=== PATIENT | female | born 1985 | race African-American/Black ===

== ENCOUNTER → 2017-01-17 | Outpatient (CLI) | payer MEDICAID ==
--- NOTE | 2017-01-17 12:13 | RADIOLOGY REPORT (SQ) ---
EXAM DESCRIPTION: CHEST PA/LATERAL COMPLETED DATE/TIME: 01/17/2017 11:55 am REASON FOR STUDY: OTHER CHEST PAIN COMPARISON: None. EXAM PARAMETERS: NUMBER OF VIEWS: two views TECHNIQUE: Digital Frontal and Lateral radiographic views of the chest acquired. RADIATION DOSE: NA LIMITATIONS: none FINDINGS: LUNGS AND PLEURA: No opacities, masses or pneumothorax. No pleural effusion. MEDIASTINUM AND HILAR STRUCTURES: No masses or contour abnormalities. HEART AND VASCULAR STRUCTURES: Heart normal size. No evidence for failure. BONES: No acute findings. HARDWARE: None in the chest. OTHER: No other significant finding. IMPRESSION: NO SIGNIFICANT RADIOGRAPHIC FINDING IN THE CHEST. TECHNICAL DOCUMENTATION: JOB ID: [id number] [employer]- All Rights Reserved
== END ==
LOC: OD 11:43
PROVIDERS: ATTEND Internal Medicine Cardiovascular Disease
DX: R07.89 Other chest pain (principal)
CPT/HCPCS: 71020

== ENCOUNTER → 2017-01-24 | Outpatient (CLI) | payer MEDICAID ==
[2017-01-24 09:48] LABS: HEMATOCRIT 36.6 % (36.0-47.0); HEMOGLOBIN 11.8 g/dL (12.0-15.5); HGB HCT DIFFERENCE -1.2; MEAN CORPUSCULAR HEMOGLOBIN 26.9 pg (27.0-33.4); MEAN CORPUSCULAR HGB CONC 32.3 g/dL (32.0-36.0); MEAN CORPUSCULAR VOLUME 83 fl (80-97); RED BLOOD COUNT 4.39 10^6/uL (3.72-5.28); RED CELL DISTRIBUTION WIDTH 14.5 % (11.5-14.0); WHITE BLOOD COUNT 4.8 10^3/uL (4.0-10.5)
[2017-01-24 10:06] LABS: ALANINE AMINOTRANSFERASE 31 U/L (9-52); ALBUMIN 4.1 g/dL (3.5-5.0); ALKALINE PHOSPHATASE 65 U/L (38-126); ANION GAP 10 (5-19); ASPARTATE AMINO TRANSFERASE 19 U/L (14-36); BILIRUBIN,DIRECT 0.3 mg/dL (0.0-0.4); BILIRUBIN,TOTAL 0.4 mg/dL (0.2-1.3); BLOOD UREA NITROGEN 9 mg/dL (7-20); CARBON DIOXIDE 25 mmol/L (22-30); CHLORIDE 106 mmol/L (98-107); CHOLESTEROL 214.01 mg/dL (0-200); CREATININE RESULT 0.75 mg/dL (0.52-1.25); Direct HDL 50 mg/dL (>40); GLUCOSE 97 mg/dL (75-110); MAGNESIUM 2.1 mg/dL (1.6-2.3); POTASSIUM 4.4 mmol/L (3.6-5.0); SODIUM 140.6 mmol/L (137-145); TOTAL PROTEIN 7.1 g/dL (6.3-8.2); TRIGLYCERIDES 56 mg/dL (<150)
[2017-01-24 10:27] LABS: DIRECT LDL 138 mg/dL (<100)
[2017-01-24 10:31] LABS: ERYTHROCYTE SEDIMENTATION RATE 19 mm/hr (0-20)
[2017-01-24 10:41] LABS: THYROID STIMULATING HORMONE 1.21 uIU/mL (0.47-4.68)
== END ==
LOC: OD 08:49
PROVIDERS: ATTEND Internal Medicine Cardiovascular Disease
DX: R00.2 Palpitations (principal); R07.89 Other chest pain; Z79.899 Other long term (current) drug therapy
CPT/HCPCS: 36415; 80048; 80061; 80076; 83036; 83735; 84439; 84443; 85027; 85652; 86038; 86430

== ENCOUNTER 2017-03-18 21:01 | Emergency (ER) | payer MEDICAID ==
--- NOTE | 2017-03-18 22:48 | ER Document Report ---
ED General - General Mode of Arrival: Ambulatory Information source: Patient TRAVEL OUTSIDE OF THE [place] IN LAST 30 DAYS: No - General Chief Complaint: Abdominal Pain Stated Complaint: ABDOMINAL PAIN,BACK PAIN Time Seen by Provider: 03/18/17 22:34 Notes: Patient is a 31-year-old female who presents to the emergency department today with complaints of lower abdominal pain. Patient states 5 days ago she had an allergic reaction to Monistat and was seen at an Urgent Care for this. Patient states a few hours after taking Monistat her "vagina swelled up to the size of a grapefruit". Patient states she now has lower abdominal pain. Patient denies dysuria, vomiting, or diarrhea. (SAIMA DIAS) - Related Data Allergies/Adverse Reactions: No Known Allergies Allergy (Verified 08/03/15 06:31) Past Medical History - General Information source: Patient - Social History Smoking Status: Never Smoker Cigarette use (# per day): No Frequency of alcohol use: None Drug Abuse: None Lives with: Family Family History: Reviewed & Not Pertinent Patient has suicidal ideation: No Patient has homicidal ideation: No Pulmonary Medical History: Reports: Hx Asthma - seasonal inhalers Surgical Hx: Negative - Immunizations Hx Diphtheria, Pertussis, Tetanus Vaccination: Yes - already received Review of Systems - Review of Systems Constitutional: No symptoms reported EENT: No symptoms reported Cardiovascular: No symptoms reported Respiratory: No symptoms reported Gastrointestinal: See HPI, Abdominal pain, Nausea - from pain. denies: Diarrhea , Vomiting Genitourinary: denies: Dysuria Female Genitourinary: No symptoms reported Musculoskeletal: No symptoms reported Skin: No symptoms reported Hematologic/Lymphatic: No symptoms reported Neurological/Psychological: No symptoms reported -: Yes All other systems reviewed and negative Physical Exam - Genitourinary External exam: Normal Speculum exam: Cervix closed, Vaginal discharge - yellow Vaginal bleeding: None Bimanuel exam: Cervical motion tender - mild. No: Adnexal mass, Adnexal tenderness - Vital signs Vitals: Temp Pulse Resp BP Pulse Ox 98 F 85 18 124/80 100 03/18/17 21:11 03/18/17 21:11 03/18/17 21:11 03/18/17 21:11 03/18/17 21:11 - Notes Notes: Physical Exam: General: Alert, appears well. HEENT: Normocephalic. Atraumatic. PERRL. Extraocular movements intact. Oropharynx clear. Neck: Supple. Non-tender. Respiratory: No respiratory distress. Clear and equal breath sounds bilaterally. Cardiovascular: Regular rate and rhythm. Abdominal: Normal Inspection. Non-tender. No distension. Normal Bowel Sounds. Female Genitourinary: See pelvic exam Back: Non-tender. No deformity or step off. Extremities: Moves all four extremities. Upper extremities: Normal inspection. Normal ROM. Lower extremities: Normal inspection. No edema. Normal ROM. Neurological: Normal cognition. AAOx4. Normal speech. Psychological: Normal affect. Normal Mood. Skin: Warm. Dry. Normal color. (SAIMA DIAS) Course - Re-evaluation Re-evalutation: 03/18/17 23:03 Patient presents emergency room with lower abdominal pain and back pain. She went to the urgent care on Saturday and she had used Monistat cream over-the- counter and her vagina area was very swollen and tender she said they did a pelvic examination he said there was internal swelling a lot discharge in the order cultures but she has not gotten results back so they started her on prednisone. She says she continues to have the pain like her insides are falling out. It goes around the lower abdomen into the right side she denies any burning with urination or blood in urine she is nauseated but not vomiting and has normal appetite. She reports as a teenager she has a history of gonorrhea and chlamydia. She denies any kidney stones on examination she is well-appearing nontoxic no acute abdominal guarding rebound rigidity pulsatile no mass or hernias on pelvic examination she has mild cervical motion tenderness mild yellow discharge but no right adnexal tenderness or fullness. Went ahead and treated her with Rocephin Zithromax oral pain medication and pending urinalysis and test. 03/18/17 23:41 Urinalysis is negative test is negative. Reassessment no acute abdominal guarding rebound rigidity no clinical concerns for appendicitis or torsion. Given her information for close follow-up in specific discussion of reasons for ED return sooner (WU ALLEN) - Vital Signs Vital signs: Temp Pulse Resp BP Pulse Ox 98 F 85 18 124/80 100 03/18/17 21:11 03/18/17 21:11 03/18/17 21:11 03/18/17 21:11 03/18/17 21:11 Discharge - Discharge Clinical Impression: Cervicitis Condition: Stable Disposition: HOME, SELF-CARE Additional Instructions: Cervicitis You have an inflammation of the cervix. This can be caused by germs, viruses, or allergy (for example to spermicide). Sometimes no cause is found. If there is no obvious cause, you will be tested for dangerous infections. These are herpes, gonorrhea, and chlamydia. Cultures may take a few days. If the physician is suspicious of a particular cause, you may begin treatment while waiting for cultures. Call or return if you develop abdominal pain, fever, rash, or other new symptoms. Abdominal Pain There are many causes of abdominal pain. Pain can mean a serious problem requiring surgery (such as appendicitis). It can also be an innocent problem that goes away on its own (such as a viral infection). Often, time must pass to determine the cause of pain. The physician does not feel that hospitalization is necessary, at present. Things may change within the next 24 hours. Call the doctor or come back for re- examination if any problems occur, such as: (1) Pain that becomes more severe, steady, or becomes concentrated in one specific area. Also, pain that is more severe with movement or coughing. (2) Vomiting that persists or becomes more frequent. (3) Blood in the vomitus, urine, or bowel movements. Blood in the stool may have a tarry or black appearance. (4) Shaking chills or fever greater than 100 degrees F. (5) The abdomen becomes more distended or swollen. (6) Bowel movements cease. (7) Failure to improve as expected. Prescriptions: Naproxen [Naprosyn 375 Mg Tablet] 375 mg PO DAILY #12 tablet Referrals: [facility] [Provider Group] (Call for an appointment to be seen in follow-up in 2-3 days return for increasing worsening or new symptoms) Scribe Attestation: 03/18/17 23:41 I personally performed the services described in the documentation reviewed the documentation recorded by my scribe in my presence and it accurately and completely records my words and actions (WU ALLEN) Scribe Documentation - Scribe Written by Edie:: Edie Keene, 03/18/2017 [id number] acting as scribe for :: Guerrero
[2017-03-18] MEDS ORDERED: AZITHROMYCIN 250 MG TABLET PO ONE (22:59)
[2017-03-18] MEDS ORDERED: CEFTRIAXONE INJ 250 MG VIAL IM ONE (22:59)
[2017-03-18] MEDS ORDERED: HYDROCODONE/ACETAMINOPHEN 5-325 MG TABLET PO ONE (23:00)
[2017-03-18 23:21] LABS: APPEARANCE,URINE CLEAR; BILIRUBIN,URINE NEGATIVE (NEGATIVE); GLUCOSE, URINE NEGATIVE (NEGATIVE); KETONES,URINE NEGATIVE (NEGATIVE); LEUKOCYTE ESTERASE,URINE NEGATIVE (NEGATIVE); NITRITE,URINE NEGATIVE (NEGATIVE); PROTEIN,URINE NEGATIVE (NEGATIVE); URINE SPECIFIC GRAVITY 1.005; UROBILINOGEN,URINE NEGATIVE mg/dL (<2.0)
[2017-03-19 00:34] LABS: CHLAM PCR NOT DETECTED (NOT DETECT)
[2017-03-19 01:18] VITALS: BP 94/54
== END 2017-03-19 00:25 | disposition home or self-care (01) ==
LOC: ER 21:01
DX: N72 Inflammatory disease of cervix uteri (principal); R10.9 Unspecified abdominal pain; M54.9 Dorsalgia, unspecified; R10.30 Lower abdominal pain, unspecified
CPT/HCPCS: 99284; 96372; 87210; 81025; 81001; 87491; 87591; Q0144; J0696

== ENCOUNTER → 2017-07-30 | Outpatient (CLI) | payer MEDICAID ==
[2017-07-30 14:06] LABS: CHOLESTEROL 243.65 mg/dL (0-200); Direct HDL 75 mg/dL (>40); TRIGLYCERIDES 68 mg/dL (<150)
[2017-07-30 14:17] LABS: DIRECT LDL 149 mg/dL (<100)
== END ==
LOC: OD 13:01
PROVIDERS: ATTEND Internal Medicine Cardiovascular Disease
DX: E78.00 Pure hypercholesterolemia, unspecified (principal)
CPT/HCPCS: 36415; 80061

== ENCOUNTER 2017-10-01 19:45 | Emergency (ER) | payer MEDICAID ==
[2017-10-01 20:13] VITALS: BP 116/72
--- NOTE | 2017-10-01 20:15 | ER Document Report ---
ED General - General Mode of Arrival: Ambulatory Information source: Patient TRAVEL OUTSIDE OF THE [place] IN LAST 30 DAYS: No - General Chief Complaint: Nausea/Vomiting Stated Complaint: VOMITING Notes: Patient is a 33-year-old female presenting to the emergency department complaining of nausea, vomiting, and diarrhea onset 2 days ago. Patient has been around her children who also have similar symptoms. Patient and her family recently been diagnosed with the flu 3 weeks ago. ( TANNER LOERA) - Related Data Allergies/Adverse Reactions: No Known Allergies Allergy (Verified 08/03/15 06:31) Past Medical History - General Information source: Patient - Social History Smoking Status: Never Smoker Chew tobacco use (# tins/day): No Family History: Reviewed & Not Pertinent Patient has suicidal ideation: No Patient has homicidal ideation: No Pulmonary Medical History: Reports: Hx Asthma - seasonal inhalers - Immunizations Hx Diphtheria, Pertussis, Tetanus Vaccination: Yes - already received Review of Systems - Review of Systems Constitutional: No symptoms reported EENT: No symptoms reported Cardiovascular: No symptoms reported Respiratory: No symptoms reported Gastrointestinal: See HPI, Diarrhea, Nausea, Vomiting Genitourinary: No symptoms reported Female Genitourinary: No symptoms reported Musculoskeletal: No symptoms reported Skin: No symptoms reported Hematologic/Lymphatic: No symptoms reported Neurological/Psychological: No symptoms reported -: Yes All other systems reviewed and negative Physical Exam - Vital signs Vitals: Temp Pulse Resp BP Pulse Ox 99.3 F 96 19 116/72 97 10/01/17 20:05 10/01/17 20:05 10/01/17 20:05 10/01/17 20:05 10/01/17 20:05 - Notes Notes: GENERAL: Alert, interacts well, well appearing. No acute distress. HEAD: Normocephalic, atraumatic. EYES: Pupils equal, round, and reactive to light. Extraocular movements intact. ENT: Oral mucosa dry, tongue midline. NECK: Full range of motion. Supple. Trachea midline. LUNGS: Clear to auscultation bilaterally, no wheezes, rales, or rhonchi. No respiratory distress. HEART: Tachycardic. No murmurs, gallops, or rubs. ABDOMEN: Soft, non-tender. Non-distended. Bowel sounds present in all 4 quadrants. EXTREMITIES: Moves all 4 extremities spontaneously. NEUROLOGICAL: Alert and oriented x3. Normal speech. PSYCH: Normal affect, normal mood. SKIN: Warm, dry, normal turgor. No rashes or lesions noted. (TANNER LOERA) - Vital Signs Vital signs: Temp Pulse Resp BP Pulse Ox 99.3 F 96 19 116/72 97 10/01/17 20:05 10/01/17 20:05 10/01/17 20:05 10/01/17 20:05 10/01/17 20:05 Discharge - Discharge Clinical Impression: Nausea Vomiting Qualifiers: Vomiting type: unspecified Vomiting Intractability: unspecified Nausea presence : with nausea Qualified Code(s): R11.2 - Nausea with vomiting, unspecified Diarrhea Qualifiers: Diarrhea type: unspecified type Qualified Code(s): R19.7 - Diarrhea, unspecified Condition: Stable Disposition: HOME, SELF-CARE Additional Instructions: Please drink Pedialyte for fluid and hydration. Return to the emergency department if you have any other worsening symptoms. Prescriptions: Ondansetron HCl [Zofran 4 mg Tablet] 1 tab PO Q4H PRN #15 tablet PRN Reason: Forms: Parent Work Note, Return to Work Referrals: YOJANA CABAN DO [Primary Care Provider] - Follow up as needed Scribe Attestation: 10/03/17 03:43 I personally performed the services described documentation, reviewed and edited the documentation which was dictated to describe my presence, and it accurately records my words and actions. (STEFANIA MOON) Scribe Documentation - Scribe Written by Scribe:: Edie Osuna, 10/01/2017 20:19 acting as scribe for :: Estevan
[2017-10-01] MEDS ORDERED: ONDANSETRON ODT 4 MG TAB (6 TAB/ER DISP) PO PRN (20:22)
== END 2017-10-01 20:40 | disposition home or self-care (01) ==
LOC: ER 19:45
DX: R11.2 Nausea with vomiting, unspecified (principal); R19.7 Diarrhea, unspecified
CPT/HCPCS: 99283

== ENCOUNTER 2017-11-12 09:00 | Emergency (ER) | payer BC, MEDICAID ==
[2017-11-12 09:47] LABS: ABSOLUTE BASOPHILS # (AUTO) 0.1 10^3/uL (0.0-0.2); ABSOLUTE LYMPHOCYTES (AUTO) 1.9 10^3/uL (0.5-4.7); ABSOLUTE MONOCYTES (AUTO) 0.4 10^3/uL (0.1-1.4); ABSOLUTE NEUT (AUTO) 2.9 10^3/uL (1.7-8.2); BASOPHILS % (AUTO) 1.3 % (0-2); EOSINOPHILS % (AUTO) 0.5 % (0-6); HEMATOCRIT 37.2 % (36.0-47.0); HEMOGLOBIN 11.9 g/dL (12.0-15.5); LYMPHOCYTES % (AUTO) 35.9 % (13-45); MEAN CORPUSCULAR HEMOGLOBIN 25.3 pg (27.0-33.4); MEAN CORPUSCULAR HGB CONC 32.1 g/dL (32.0-36.0); MEAN CORPUSCULAR VOLUME 79 fl (80-97); PLATELET COUNT 299 10^3/uL (150-450); RED BLOOD COUNT 4.71 10^6/uL (3.72-5.28); SEGMENTED NEUTROPHILS % (AUTO) 54.3 % (42-78); TOTAL CELLS COUNTED % (AUTO) 100 %; WHITE BLOOD COUNT 5.4 10^3/uL (4.0-10.5)
--- NOTE | 2017-11-12 10:02 | ER Document Report ---
ED General - General Chief Complaint: Overdose Stated Complaint: VOMITING Time Seen by Provider: 11/12/17 09:07 Mode of Arrival: Ambulatory Information source: Patient Notes: 32 yr old female presents with complaints of ingestion of pills last night with alcohol. Pt notes that she "was tired" called her to come get the children. pt is a chronic alcoholic. she denies si to me, but noted by ems to have such concerns. TRAVEL OUTSIDE OF THE [place] IN LAST 30 DAYS: No - HPI Onset: Yesterday Onset/Duration: Sudden Quality of pain: No pain Severity: Mild Pain Level: Denies Associated symptoms: Other Exacerbated by: Denies Relieved by: Denies Similar symptoms previously: Yes Recently seen / treated by doctor: Yes - Related Data Allergies/Adverse Reactions: No Known Allergies Allergy (Verified 08/03/15 06:31) Past Medical History - Social History Smoking Status: Never Smoker Cigarette use (# per day): No Chew tobacco use (# tins/day): No Smoking Education Provided: No Frequency of alcohol use: Heavy Family History: Reviewed & Not Pertinent - Past Medical History Cardiac Medical History: Denies: Hx Coronary Artery Disease, Hx Heart Attack, Hx Hypertension Pulmonary Medical History: Reports: Hx Asthma - seasonal inhalers Denies: Hx Bronchitis, Hx COPD, Hx Pneumonia Neurological Medical History: Denies: Hx Cerebrovascular Accident, Hx Seizures Renal/ Medical History: Denies: Hx Peritoneal Dialysis Musculoskeltal Medical History: Denies Hx Arthritis - Immunizations Hx Diphtheria, Pertussis, Tetanus Vaccination: Yes - already received Review of Systems - Review of Systems Notes: REVIEW OF SYSTEMS: CONSTITUTIONAL : Denies fever, chills, or sweats. Denies recent illness. EENT: Denies eye, ear, throat, or mouth pain or symptoms. Denies nasal or sinus congestion or discharge. Denies throat, tongue, or mouth swelling or difficulty swallowing. CARDIOVASCULAR: Denies chest pain. Denies palpitations or racing or irregular heart beat. Denies ankle edema. RESPIRATORY: Denies cough, cold, or chest congestion. Denies shortness of breath, difficulty breathing, or wheezing. GASTROINTESTINAL: Denies abdominal pain or distention. Denies nausea, vomiting , or diarrhea. Denies blood in vomitus, stools, or per rectum. Denies black, tarry stools. Denies constipation. GENITOURINARY: Denies difficulty urinating, painful urination, burning, frequency, blood in urine, or discharge. FEMALE GENITOURINARY: Denies vaginal bleeding, heavy or abnormal periods, irregular periods. Denies vaginal discharge or odor. MUSCULOSKELETAL: Denies back or neck pain or stiffness. Denies joint pain or swelling. SKIN: Denies rash, lesions or sores. HEMATOLOGIC : Denies easy bruising or bleeding. LYMPHATIC: Denies swollen, enlarged glands. NEUROLOGICAL: Denies confusion or altered mental status. Denies passing out or loss of consciousness. Denies dizziness or lightheadedness. Denies headache. Denies weakness or paralysis or loss of use of either side. Denies problems with gait or speech. Denies sensory loss, numbness, or tingling. Denies seizures. PSYCHIATRIC: Denies any suicidal ideations to myself ALL OTHER SYSTEMS REVIEWED AND NEGATIVE. PHYSICAL EXAMINATION: GENERAL: Well-appearing, well-nourished and in no acute distress. HEAD: Atraumatic, normocephalic. EYES: Pupils equal round and reactive to light, extraocular movements intact, conjunctiva are glazed ENT: Nares patent, oropharynx clear without exudates. Moist mucous membranes. NECK: Normal range of motion, supple without lymphadenopathy LUNGS: Breath sounds clear to auscultation bilaterally and equal. No wheezes rales or rhonchi. HEART: Regular rate and rhythm without murmurs ABDOMEN: Soft, nontender, nondistended abdomen. No guarding, no rebound. No masses appreciated. Female : deferred Musculoskeletal: Normal range of motion, no pitting or edema. No cyanosis. NEUROLOGICAL: Cranial nerves grossly intact. Normal speech, normal gait. Normal sensory, motor exams PSYCH: Flat affect does not make eye contact SKIN: Warm, Dry, normal turgor, no rashes or lesions noted. Dictation was performed using [employer] voice recognition software Physical Exam - Vital signs Vitals: Resp Pulse Ox 11 L 97 11/12/17 09:12 11/12/17 09:12 Course - Re-evaluation Re-evalutation: 11/12/17 10:02 I will have mental health evaluate the patient, I have very low suspicion for actual overdoses symptoms occurred greater than 12 hours ago 11/12/17 13:22 It appears cocaine was found at the house, patient continuously changes her story as to what medications she is taking otherwise, she will be watched and involuntarily held until she is sober - Vital Signs Vital signs: Temp Pulse Resp BP Pulse Ox 98.2 F 17 124/90 H 98 11/12/17 09:22 11/12/17 12:00 11/12/17 11:00 11/12/17 12:00 - Laboratory Result Diagrams: 11/12/17 09:22 11/12/17 09:22 Laboratory results interpreted by me: 11/12/17 11/12/17 09:22 09:22 Hgb 11.9 L MCV 79 L MCH 25.3 L RDW 17.0 H BUN 6 L Total Bilirubin 0.1 L Salicylates < 1.0 L Acetaminophen < 10 L - EKG Interpretation by Me EKG shows normal: Moore, Intervals, QRS Complexes, ST-T Waves Discharge - Discharge Clinical Impression: Suicidal ideation Condition: Stable Disposition: PSYCH HOSP/UNIT
[2017-11-12 10:05] LABS: ALANINE AMINOTRANSFERASE 45 U/L (9-52); ALBUMIN 4.1 g/dL (3.5-5.0); ALCOHOL 32 mg/dL (NONE DETECTED); ALKALINE PHOSPHATASE 59 U/L (38-126); ANION GAP 11 (5-19); ASPARTATE AMINO TRANSFERASE 30 U/L (14-36); BILIRUBIN,DIRECT 0.1 mg/dL (0.0-0.4); BILIRUBIN,TOTAL 0.1 mg/dL (0.2-1.3); BLOOD UREA NITROGEN 6 mg/dL (7-20); CALCIUM 9.4 mg/dL (8.4-10.2); CARBON DIOXIDE 27 mmol/L (22-30); CHLORIDE 104 mmol/L (98-107); GLUCOSE 110 mg/dL (75-110); SODIUM 142.3 mmol/L (137-145); TOTAL PROTEIN 6.8 g/dL (6.3-8.2)
[2017-11-12 10:06] LABS: ACETAMINOPHEN < 10 ug/mL (10-30); SALICYLATE < 1.0 mg/dL (2.0-20.0)
--- NOTE | 2017-11-12 10:44 | EKG REPORT ---
SEVERITY:- NORMAL ECG - SINUS RHYTHM : Confirmed by: Tati Gomez 12-Nov-2017 10:44:22
--- NOTE | 2017-11-12 12:17 | PSYCHOLOGICAL NOTE ---
Psych Note - Psych Note Psych Note: Reason for consult: Intentional overdose/suicidal ideation Eval: 11:30 am Final Disposition 12:00 pm Patient is a 32-year-old female. Patient reports she was "chasing a feeling" by taking Xanax, snorting cocaine, and drinking beer. Patient reports she met a senthil recently and started doing cocaine. Patient reports she has a history of depression and anxiety and was treated at [facility] 2 years ago stating that it was not helpful. Patient reports she had depression 2 years ago which led to her self-medicating. Patient reports her mother had depression and anxiety, and bipolar disorder. Patient reports her father had no psychological issues. Patient reports she has never been to a psych hospital before. Patient reports she is seen at [facility] by Dr. Jarrell and received Xanax 5 mg as needed and Paxil 10 mg daily. Patient reports that her Mathew is a trigger and talked about going to marriage counseling with him but stated that she has not gone through with that. Patient reports she just feels like she could not go to work and does not want to live sometimes. Originally patient reported not feeling suicidal but upon entering the room confirmed the comments he made stating they were true. Collateral information: patient's Mathew Luna phone #[phone] present in room Patient's reports 2 weeks ago patient was stating she was feeling like not living anymore and he did not take her serious. Patient has been reports that today he called her and she asked him to garbage pick up man the kids and he assumed that she was just drunk "or something" and so he came to help up with the kids and noticed that she was not herself got in bed with her and listen to her talk about how she wanted to . Patient's reports that he noticed there was cocaine in the room but got rid of it before the police could see it. Patient has been reports that he feels she is self-medicating and stated that he feels this was a true suicide attempt because of what patient was talking about and how many pills she had taken. Patient's reports patient is addicted to cocaine, pain pills, Xanax, and alcohol. Patient's reports he wants her to get help. Patient's stated "I am not clear let my ". 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 Clinician observed patient's symptoms are congruent with depression, patient displays flat affect, tearful, and is guarded. Clinician observed patient reports taking Xanax, Cocaine, Alcohol with intention to get high, although patient's report conflicts stating when arriving at her place of residence patient disclosed to him it was intentional stating " I just want to , I don't want to live anymore". Further observation is needed. Mental health to reassess at a later time.Due to patient and patient's reporting substance use in front of children with no other sober adult, and patient being too high to care for children, Clinician to make DSS report. Consulted with Dr. Bradley regarding the management and care of patient.
[2017-11-12 15:11] LABS: APPEARANCE,URINE CLEAR; BILIRUBIN,URINE NEGATIVE (NEGATIVE); COLOR,URINE YELLOW; GLUCOSE, URINE NEGATIVE (NEGATIVE); KETONES,URINE NEGATIVE (NEGATIVE); LEUKOCYTE ESTERASE,URINE NEGATIVE (NEGATIVE); NITRITE,URINE NEGATIVE (NEGATIVE); PROTEIN,URINE NEGATIVE (NEGATIVE); URINE SPECIFIC GRAVITY 1.012; UROBILINOGEN,URINE NEGATIVE mg/dL (<2.0)
[2017-11-12 15:13] LABS: URINE AMPHETAMINES SCREEN NEGATIVE; URINE BARBITURATES SCREEN NEGATIVE; URINE BENZODIAZEPINES SCREEN NEGATIVE; URINE COCAINE SCREEN UNCONFIRMED POSITIVE; URINE MARIJUANA (THC) SCREEN NEGATIVE; URINE METHADONE SCREEN NEGATIVE; URINE PHENCYCLIDINE SCREEN NEGATIVE
--- NOTE | 2017-11-13 09:20 | ER Document Report ---
Doctor's Note Notes: 11/13/17 09:19 This is a 32-year-old female I was brought into the emergency room after suspected overdose. The patient did report suicidal ideations in the setting of polysubstance abuse. Her vital signs and labs have been stable. Psychiatric evaluation in progress. On physical exam, the patient is resting comfortably and easily aroused. She states that she has been followed up at [facility] in the past but did not feel they were doing much. Previously she was on Paxil and Xanax and currently she is on no medicines. 11/13/17 09:41 11/13/17 12:30 The plan will be for inpatient psychiatric hospitalization.
[2017-11-13] MEDS ORDERED: OLANZAPINE 5 MG TABLET PO SCH (12:00)
[2017-11-13] MEDS ORDERED: BENZTROPINE MESYLATE 1 MG TABLET PO SCH (12:00)
--- NOTE | 2017-11-13 12:19 | PSYCHOLOGICAL NOTE ---
Psych Note - Psych Note Psych Note: Reason for consult: Suicide Attempt Patient is a 32-year-old female. Patient reports nothing much has changed, she still feels like she "cannot do it". Patient reports she is not sure what is wrong. Patient reports some days she cannot get out of bed, and she finds herself doing anything, and nothing feels right. Patient reports there were several weeks where she was able to go to work, get dressed, take care of the kids and cook and clean, and stated that when she is doing good she feels she is being judged by everyone including her Mathew and her mother. Patient reports that Mathew makes it worse because he reminds her of all the bad things she has done. Patient reports yesterday when her Mathew came to the hospital she felt even worse because before saying that she needed to get help and that he cared he was reminding her of all the wrong things she was doing. Patient reports she does not want anyone to know she is in the hospital and states that her Mathew can contact her. Patient was tearful throughout assessment. Patient's mood was depressed, and flat affect. 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 Clinician observed patient's symptoms are congruent with depression, patient displays flat affect, tearful, and is guarded. Clinician observed patient reports taking Xanax, Cocaine, Alcohol with intention to get high, although patient's report conflicts stating when arriving at her place of residence patient disclosed to him it was intentional stating " I just want to , I don't want to live anymore". Consulted with Dr. Bradley regarding the management and care of patient.
[2017-11-13 16:29] VITALS: BP 125/82
== END 2017-11-13 15:41 ==
LOC: ER 09:00
DX: R45.851 Suicidal ideations (principal); T50.905A Adverse effect of unspecified drugs, medicaments and biological substances, initial encounter; F10.10 Alcohol abuse, uncomplicated; J45.909 Unspecified asthma, uncomplicated
CPT/HCPCS: 36415; 80053; 80307; 81001; 83735; 84703; 85025; 93005; 93010; 99285

== ENCOUNTER 2018-03-05 11:08 | Emergency (ER) | payer BC, MEDICAID ==
--- NOTE | 2018-03-05 12:11 | ER Document Report ---
ED General Pain - General Chief Complaint: Pain All Over Stated Complaint: ARM PAIN Time Seen by Provider: 03/05/18 12:09 Mode of Arrival: Ambulatory Information source: Patient Notes: Patient is a 32-year-old female who presents to the ER today for complaints of pain all over her body 1 week. Patient states that her arms, upper back, chest and legs are all hurting her. Patient denies any injury, she denies that it hurts worse when she moves, stating that it hurts "the same whether I move or sit still." Patient states that her hands are going numb and she is waking up in the middle of the night crying because of the tingling in her fingertips. Patient states that she also had a sore throat before this all started. She denies any history of lupus, fibromyalgia, rheumatoid arthritis or any other illness that makes her joints hurt or any swelling. She denies being bitten by tick that she knows of. TRAVEL OUTSIDE OF THE [place] IN LAST 30 DAYS: No - Related Data Allergies/Adverse Reactions: No Known Allergies Allergy (Verified 03/05/18 11:58) Past Medical History - General Information source: Patient - Social History Smoking Status: Current Every Day Smoker Chew tobacco use (# tins/day): No Frequency of alcohol use: None Drug Abuse: None Family History: Reviewed & Not Pertinent Patient has suicidal ideation: No Patient has homicidal ideation: No - Past Medical History Cardiac Medical History: Denies: Hx Coronary Artery Disease, Hx Heart Attack, Hx Hypertension Pulmonary Medical History: Reports: Hx Asthma - induced Denies: Hx Bronchitis, Hx COPD, Hx Pneumonia Neurological Medical History: Denies: Hx Cerebrovascular Accident, Hx Seizures Renal/ Medical History: Denies: Hx Peritoneal Dialysis Musculoskeletal Medical History: Denies Hx Arthritis Psychiatric Medical History: Reports: Hx Depression Past Surgical History: Reports: Hx Gynecologic Surgery - surclogic, Hx Tubal Ligation - Immunizations Hx Diphtheria, Pertussis, Tetanus Vaccination: Yes - already received Review of Systems - Review of Systems Constitutional: No symptoms reported EENT: No symptoms reported Cardiovascular: No symptoms reported Respiratory: No symptoms reported Gastrointestinal: No symptoms reported Genitourinary: No symptoms reported Female Genitourinary: No symptoms reported Musculoskeletal: See HPI Skin: No symptoms reported Hematologic/Lymphatic: No symptoms reported Neurological/Psychological: No symptoms reported Physical Exam - Vital signs Vitals: Temp Pulse Resp BP Pulse Ox 98.0 F 78 14 124/77 100 03/05/18 11:19 03/05/18 11:19 03/05/18 11:19 03/05/18 11:19 03/05/18 11:19 - Notes Notes: PHYSICAL EXAMINATION: GENERAL: Anxious-appearing and in no acute distress. HEAD: Atraumatic, normocephalic. EYES: Pupils equal round and reactive to light, extraocular movements intact, sclera anicteric, conjunctiva are normal. ENT: ear canals without erythema or foreign body, TMs pearly marshall with good bony landmarks, nares patent, oropharynx clear without exudates. Moist mucous membranes. NECK: Normal range of motion, supple without lymphadenopathy LUNGS: CTAB and equal. No wheezes rales or rhonchi. HEART: Regular rate and rhythm without murmurs ABDOMEN: Soft, no tenderness. No guarding, no rebound BACK: no vertebral tenderness, normal ROM GI/: no CVA tenderness EXTREMITIES: Normal range of motion, no pitting edema. No cyanosis. NEUROLOGICAL: Cranial nerves grossly intact. Normal sensory/motor exams. PSYCH: Normal mood, normal affect. SKIN: Warm, Dry, normal turgor, no rashes or lesions noted Course - Re-evaluation Re-evalutation: 03/05/18 13:52 Lab work is unremarkable today, I have no suspicion for patient's all over body pain today. Electrolytes are normal, CK is only mildly elevated. I do not believe patient is an rhabdo. I advised that she follow-up with her primary care provider. Lyme titers and JOAN, sed rate and CRP are all pending at this time. - Vital Signs Vital signs: Temp Pulse Resp BP Pulse Ox 97.8 F 69 16 116/75 98 03/05/18 12:52 03/05/18 12:52 03/05/18 12:52 03/05/18 12:52 03/05/18 12:52 - Laboratory Result Diagrams: 03/05/18 13:05 03/05/18 13:05 Laboratory results interpreted by me: 03/05/18 03/05/18 13:05 13:05 Hgb 11.6 L Hct 34.2 L RDW 16.9 H Creatine Kinase 239 H Discharge - Discharge Clinical Impression: Whole body pain Condition: Stable Disposition: HOME, SELF-CARE Additional Instructions: Return immediately for any new or worsening symptoms. Follow up with primary care provider, call tomorrow to make followup appointment. Prescriptions: Cyclobenzaprine HCl [Flexeril 10 mg Tablet] 10 mg PO TIDP PRN #15 tab PRN Reason: Methylprednisolone [Medrol Dosepack (4 mg/Tab) 21 Tab/Dosepak] 4 mg PO ASDIR PRN #21 tab.ds.pk PRN Reason: Referrals: YOJANA CABAN DO [Primary Care Provider] - Follow up as needed
[2018-03-05] MEDS ORDERED: KETOROLAC TROMETHAMINE INJ/PF 30 MG/1 ML SDV IV ONE (13:04)
[2018-03-05 13:17] LABS: ABSOLUTE EOSINOPHILS # (AUTO) 0.1 10^3/uL (0.0-0.6); ABSOLUTE LYMPHOCYTES (AUTO) 1.6 10^3/uL (0.5-4.7); ABSOLUTE MONOCYTES (AUTO) 0.4 10^3/uL (0.1-1.4); BASOPHILS % (AUTO) 1.1 % (0-2); EOSINOPHILS % (AUTO) 2.6 % (0-6); HEMATOCRIT 34.2 % (36.0-47.0); HEMOGLOBIN 11.6 g/dL (12.0-15.5); MEAN CORPUSCULAR HEMOGLOBIN 27.6 pg (27.0-33.4); MEAN CORPUSCULAR HGB CONC 33.8 g/dL (32.0-36.0); MEAN CORPUSCULAR VOLUME 82 fl (80-97); MONOCYTES % (AUTO) 9.3 % (3-13); PLATELET COUNT 257 10^3/uL (150-450); RED BLOOD COUNT 4.18 10^6/uL (3.72-5.28); RED CELL DISTRIBUTION WIDTH 16.9 % (11.5-14.0); TOTAL CELLS COUNTED % (AUTO) 100 %; WHITE BLOOD COUNT 4.1 10^3/uL (4.0-10.5)
[2018-03-05 13:42] LABS: ALANINE AMINOTRANSFERASE 27 U/L (9-52); ALBUMIN 4.1 g/dL (3.5-5.0); ALKALINE PHOSPHATASE 64 U/L (38-126); ANION GAP 11 (5-19); ASPARTATE AMINO TRANSFERASE 24 U/L (14-36); BILIRUBIN,DIRECT 0.2 mg/dL (0.0-0.4); BILIRUBIN,TOTAL 0.4 mg/dL (0.2-1.3); BLOOD UREA NITROGEN 10 mg/dL (7-20); C-REACTIVE PROTEIN 5.6 mg/L (<10.0); CALCIUM 9.1 mg/dL (8.4-10.2); CARBON DIOXIDE 27 mmol/L (22-30); CHLORIDE 104 mmol/L (98-107); CREATINE KINASE 239 U/L (30-135); GLUCOSE 89 mg/dL (75-110); POTASSIUM 4.1 mmol/L (3.6-5.0); SODIUM 141.5 mmol/L (137-145)
[2018-03-05 13:58] LABS: ERYTHROCYTE SEDIMENTATION RATE 19 mm/hr (0-20)
[2018-03-05 14:09] VITALS: BP 119/74
[2018-03-06 14:42] LABS: ANTICHROMATIN AB <0.2 AI (0.0-0.9); CENTROMERE B AB <0.2 AI (0.0-0.9); JO-1 ANTIBODY (ANACOMP) <0.2 AI (0.0-0.9); RNP AB <0.2 AI (0.0-0.9); SCLERODERMA-70 ANTIBODIES <0.2 AI (0.0-0.9); SJOGREN'S ANTI-SS-B AB <0.2 AI (0.0-0.9); SJOGREN'S SS-A ANTIBODY <0.2 AI (0.0-0.9); SMITH AB ANA <0.2 AI (0.0-0.9)
[2018-03-06 15:14] LABS: DNA DOUBLE STRAND ANTIBODY ANA <1 IU/mL (0-9)
[2018-03-07 10:16] LABS: LYME DISEASE IGM AB <0.80 index (0.00-0.79)
== END 2018-03-05 14:21 | disposition home or self-care (01) ==
LOC: ER 11:08
DX: M79.603 Pain in arm, unspecified (principal); M54.89 Other dorsalgia; R07.9 Chest pain, unspecified; M79.606 Pain in leg, unspecified; R20.0 Anesthesia of skin; R20.2 Paresthesia of skin; F17.200 Nicotine dependence, unspecified, uncomplicated
CPT/HCPCS: 99283; 96374; 36415; 82550; 85025; 85652; 86140; 86430; 80053; 86618 ×2; 86617 ×2; 86225; 86235 ×8; J1885